=== PATIENT | male | born 1930 | race Caucasian/White ===

== ENCOUNTER → 2017-06-25 | Outpatient (CLI) | payer MEDICARE, OTHER ==
[~2017-06-25] MED LIST: ADVIL PM PO; ASPI81CH PO; ASPI81EC PO; FINA5 PO; Fish Oil300 MG PO; IBUP400 PO; LOSA25; MECL12.5 PO; MULTIVITAMIN PO; SIMV10 PO; SIMVASTATIN PO; TAMS.4ER PO; UBID100 PO; [UNRECOGNIZED DRUG - OTHER] PO
== END ==
LOC: LAB SHORT 12:00 → PLD 12:00
DX: D48.5 Neoplasm of uncertain behavior of skin (principal)
CPT/HCPCS: 88305

== ENCOUNTER → 2017-11-12 | Outpatient (CLI) | payer MEDICARE, OTHER | END | disposition home or self-care (01) | LOC: LAB SHORT 13:32 → PLD 13:32 | DX: D48.5 Neoplasm of uncertain behavior of skin (principal) | CPT/HCPCS: 88305 ==

== ENCOUNTER → 2017-11-24 | Outpatient (CLI) | payer MEDICARE, OTHER ==
[2017-11-24 09:45] LABS: BASOPHILS ABSOLUTE AUTO 0.04 K/mm3 (0.00-0.23); BASOPHILS PERCENT AUTO 0 % (0-2); EOSINOPHILS ABSOLUTE AUTO 0.01 K/mm3 (0.00-0.68); EOSINOPHILS PERCENT AUTO 0 % (0-6); Hematocrit 34.7 % (37.0-53.0); IMMATURE GRAN ABSOLUTE AUTO 0.23 K/mm3 (0.00-0.10); IMMATURE GRAN PERCENT AUTO 1 % (0-1); LYMPHOCYTES ABSOLUTE AUTO 1.37 K/mm3 (0.84-5.20); LYMPHOCYTES PERCENT AUTO 6 % (21-46); MONOCYTES ABSOLUTE AUTO 1.83 K/mm3 (0.16-1.47); MONOCYTES PERCENT AUTO 8 % (4-13); Mean Corpuscular HGB 32.5 pg (26.0-34.0); Mean Corpuscular HGB Conc 34.6 g/dL (31.5-36.5); Mean Corpuscular Volume 94 fL (80-100); Mean Platelet Volume 10.4 fL (9.1-12.4); NEUTROPHILS ABSOLUTE AUTO 18.29 K/mm3 (1.96-9.15); NEUTROPHILS PERCENT AUTO 84 % (41-73); Platelet Count 239 K/mm3 (150-400); RDW Coefficient Variation 13.5 % (11.7-14.2); Red Blood Cell Count 3.69 M/mm3 (4.30-5.90); White Blood Cell Count 21.77 K/mm3 (4.00-11.30)
[2017-11-24 09:53] LABS: Albumin, Blood 2.8 g/dL (3.4-5.0); Albumin/Globulin Ratio 0.7 (0.8-1.8); Bilirubin, Total 0.6 mg/dL (0.1-1.0); Bun/Creatinine Ratio 22.3 (12.0-20.0); Calcium, Blood 9.5 mg/dL (8.5-10.1); Creatinine, Blood 2.69 mg/dL (0.60-1.20); Globulin, Blood 4.3 g/dL (2.2-4.0); Potassium, Blood 4.7 mmol/L (3.5-5.5); Total Protein, Blood 7.1 g/dL (6.4-8.2)
[2017-11-24 10:20] LABS: Source, Urine Voided
[2017-11-24 10:39] LABS: Bacteria Mod /hpf; Granular Casts 0-2 /lpf (0); Mucus Mod (0-Heavy); Squamous Epithelial Cells Few /hpf (Few)
== END | disposition home or self-care (01) ==
LOC: LAB EV 09:38 → LAB SHORT 09:38
PROVIDERS: Physician Assistant Medical
DX: R10.84 Generalized abdominal pain (principal)
CPT/HCPCS: 80053; 81015; 83690; 85025

== ENCOUNTER → 2017-11-25 | Outpatient (CLI) | payer MEDICARE, OTHER ==
[2017-11-25 14:40] LABS: BASOPHILS ABSOLUTE AUTO 0.04 K/mm3 (0.00-0.23); BASOPHILS PERCENT AUTO 0 % (0-2); EOSINOPHILS ABSOLUTE AUTO 0.04 K/mm3 (0.00-0.68); EOSINOPHILS PERCENT AUTO 0 % (0-6); Hematocrit 36.8 % (37.0-53.0); Hemoglobin 12.2 g/dL (13.5-17.5); IMMATURE GRAN ABSOLUTE AUTO 0.14 K/mm3 (0.00-0.10); IMMATURE GRAN PERCENT AUTO 1 % (0-1); LYMPHOCYTES PERCENT AUTO 8 % (21-46); MONOCYTES ABSOLUTE AUTO 1.33 K/mm3 (0.16-1.47); MONOCYTES PERCENT AUTO 7 % (4-13); Mean Corpuscular HGB 31.5 pg (26.0-34.0); Mean Corpuscular HGB Conc 33.2 g/dL (31.5-36.5); Mean Corpuscular Volume 95 fL (80-100); Mean Platelet Volume 9.9 fL (9.1-12.4); NEUTROPHILS ABSOLUTE AUTO 16.06 K/mm3 (1.96-9.15); NEUTROPHILS PERCENT AUTO 84 % (41-73); Platelet Count 274 K/mm3 (150-400); RDW Coefficient Variation 13.6 % (11.7-14.2); RDW Standard Deviation 47.6 fL (35.1-46.3); Red Blood Cell Count 3.87 M/mm3 (4.30-5.90); White Blood Cell Count 19.11 K/mm3 (4.00-11.30)
== END | disposition home or self-care (01) ==
LOC: LAB SHORT 14:36 → LAB EV 14:36
PROVIDERS: Physician Assistant Medical
DX: N39.0 Urinary tract infection, site not specified (principal)
CPT/HCPCS: 85025

== ENCOUNTER 2019-01-08 09:37 | Day surgery (SDC) | payer MEDICARE, OTHER | END 2019-01-08 22:34 | disposition home or self-care (01) | LOC: CT 09:37 | DX: M89.8X8 Other specified disorders of bone, other site (principal); E78.5 Hyperlipidemia, unspecified; Z85.51 Personal history of malignant neoplasm of bladder; Z87.891 Personal history of nicotine dependence; Z79.82 Long term (current) use of aspirin; Z79.899 Other long term (current) drug therapy; Z88.5 Allergy status to narcotic agent | CPT/HCPCS: 20220; 77012; 88307 ==

== ENCOUNTER → 2019-02-09 | Outpatient (CLI) | payer MEDICARE, OTHER ==
[2019-02-09 10:58] LABS: Source, Urine Clean Catch
[2019-02-09 12:58] LABS: Appearance, Urine Clear (Clear); Color, Urine Yellow (P-Yellow)
[2019-02-09 12:59] LABS: Bacteria Few /hpf; Bilirubin, Urine Neg (Neg); Blood, Urine Trace (Neg); Glucose Qualitative, Urine Neg (Normal); Ketones, Urine Neg (Neg); Leukocyte Esterase, Urine Trace (Neg); Nitrite, Urine Neg (Neg); Protein, Urine Neg (Neg); Red Blood Cells, Urine 0-2 /hpf (0-2); Squamous Epithelial Cells Rare /hpf (Few); Urobilinogen, Urine NORM (Normal)
[2019-02-09 15:16] LABS: Creatinine, Urine Random 66.5 mg/dL (27.00-270.00); Protein, Urine Random 5.9 mg/dL (0.0-11.9)
== END | disposition home or self-care (01) ==
LOC: LAB EV 09:30
PROVIDERS: Internal Medicine
DX: N18.4 Chronic kidney disease, stage 4 (severe) (principal)
CPT/HCPCS: 81001; 82570; 84156

== ENCOUNTER 2020-04-18 22:17 | Inpatient (IN) | payer OTHER, MEDICARE ==
[~2020-04-18] VITALS: Ht 167.6 cm; Wt 66.2 kg
[~2020-04-18 22:17] MED LIST changes: +FISH OIL PO; -Fish Oil300 MG PO; +MULTI-VITAMIN1 EAC2 PO; -MULTIVITAMIN PO
[2020-04-18 22:56] LABS: BASOPHILS ABSOLUTE AUTO 0.01 K/mm3 (0.00-0.23); BASOPHILS PERCENT AUTO 0 % (0-2); EOSINOPHILS PERCENT AUTO 0 % (0-6); Hemoglobin 13.7 g/dL (13.5-17.5); IMMATURE GRAN ABSOLUTE AUTO 0.04 K/mm3 (0.00-0.10); IMMATURE GRAN PERCENT AUTO 1 % (0-1); LYMPHOCYTES ABSOLUTE AUTO 0.44 K/mm3 (0.84-5.20); LYMPHOCYTES PERCENT AUTO 5 % (21-46); MONOCYTES ABSOLUTE AUTO 0.91 K/mm3 (0.16-1.47); MONOCYTES PERCENT AUTO 10 % (4-13); Mean Corpuscular HGB 30.7 pg (26.0-34.0); Mean Corpuscular HGB Conc 34.3 g/dL (31.5-36.5); Mean Corpuscular Volume 90 fL (80-100); NEUTROPHILS ABSOLUTE AUTO 7.35 K/mm3 (1.96-9.15); NEUTROPHILS PERCENT AUTO 84 % (41-73); Platelet Count 161 K/mm3 (150-400); RDW Coefficient Variation 13.2 % (11.7-14.2); RDW Standard Deviation 43.7 fL (35.1-46.3); Red Blood Cell Count 4.46 M/mm3 (4.30-5.90); White Blood Cell Count 8.75 K/mm3 (4.00-11.30)
[2020-04-18 23:12] LABS: Albumin, Blood 2.9 g/dL (3.4-5.0); Albumin/Globulin Ratio 0.8 (0.8-1.8); Bilirubin, Total 0.3 mg/dL (0.1-1.0); Bun/Creatinine Ratio 19.8 (12.0-20.0); Calcium, Blood 8.6 mg/dL (8.5-10.1); Creatinine, Blood 1.67 mg/dL (0.60-1.20); Globulin, Blood 3.8 g/dL (2.2-4.0); Potassium, Blood 4.1 mmol/L (3.5-5.5); Total Protein, Blood 6.7 g/dL (6.4-8.2); Troponin I 0.04 ng/mL (0.000-0.040)
[2020-04-19 02:54] LABS: Source, Urine Catheter
[2020-04-19 02:59] LABS: Bilirubin, Urine Neg (Neg); Blood, Urine 4+ (Neg); Glucose Qualitative, Urine Neg (Neg); Ketones, Urine Neg (Neg); Leukocyte Esterase, Urine Neg (Neg); Nitrite, Urine Neg (Neg); Protein, Urine 3+ (Neg); Specific Gravity, Urine 1.025 (1.003-1.022); Urobilinogen, Urine NORM (Normal)
[2020-04-19 03:00] LABS: Appearance, Urine Clear (Clear); Color, Urine Yellow (P-Yellow)
[2020-04-19 03:05] LABS: White Blood Cells, Urine 0-2 /hpf (0-5)
[2020-04-19 03:07] LABS: Amorphous Mod (0-Heavy); Bacteria Few /hpf; Mucus Light (0-Heavy); Squamous Epithelial Cells Few /hpf (Few)
[2020-04-19 04:59] LABS: BASOPHILS ABSOLUTE AUTO 0.01 K/mm3 (0.00-0.23); BASOPHILS PERCENT AUTO 0 % (0-2); EOSINOPHILS ABSOLUTE AUTO 0.01 K/mm3 (0.00-0.68); EOSINOPHILS PERCENT AUTO 0 % (0-6); Hematocrit 40.5 % (37.0-53.0); Hemoglobin 13.5 g/dL (13.5-17.5); IMMATURE GRAN ABSOLUTE AUTO 0.06 K/mm3 (0.00-0.10); IMMATURE GRAN PERCENT AUTO 1 % (0-1); LYMPHOCYTES ABSOLUTE AUTO 0.55 K/mm3 (0.84-5.20); LYMPHOCYTES PERCENT AUTO 7 % (21-46); MONOCYTES ABSOLUTE AUTO 0.29 K/mm3 (0.16-1.47); MONOCYTES PERCENT AUTO 4 % (4-13); Mean Corpuscular HGB 30.5 pg (26.0-34.0); Mean Corpuscular HGB Conc 33.3 g/dL (31.5-36.5); Mean Corpuscular Volume 92 fL (80-100); Mean Platelet Volume 9.9 fL (9.1-12.4); NEUTROPHILS ABSOLUTE AUTO 6.47 K/mm3 (1.96-9.15); NEUTROPHILS PERCENT AUTO 88 % (41-73); NRBC ABSOLUTE 0.02 K/mm3 (0.00-0.02); NRBC Auto 0.3 /100 WBC (0.0-0.2); Platelet Count 122 K/mm3 (150-400); RDW Coefficient Variation 13.2 % (11.7-14.2); RDW Standard Deviation 45.1 fL (35.1-46.3); Red Blood Cell Count 4.42 M/mm3 (4.30-5.90); White Blood Cell Count 7.39 K/mm3 (4.00-11.30)
--- NOTE | 2020-04-19 04:59 | NUR ---
GRAPHIC DESIGN SPECIALIST SUMMARY PT ARRIVED TO FLOOR FROM ED WITH UNLABORED BREATHING AND O2 SATS IN THE HIGH 90'S SO HE WAS PLACED ON HI FLOW O2 W O2 SATS 92-95% ALL NIGHT. PT DENIED ANY PAIN OR NAUSEA THIS SHIFT. PT HAS BEEN AFEBRILE. PT REPORTED THAT HE SELF CATHETERS HIMSELF AT HOME SO A BHAGAT CATHETER WAS PLACED PER ORDER. PT REPORTS THAT HE IS TOO WEAK TO AMBULATE AND THAT HE HAS FALLEN MULTIPLE TIMES DUE TO INCREASING WEAKNESS SINCE BEING DX W COVID 19. WILL REPORT TO DARREN RN, WCRIO.
[2020-04-19 05:12] LABS: Albumin, Blood 2.7 g/dL (3.4-5.0); Albumin/Globulin Ratio 0.8 (0.8-1.8); Bilirubin, Total 0.5 mg/dL (0.1-1.0); Bun/Creatinine Ratio 21.6 (12.0-20.0); Calcium, Blood 8.5 mg/dL (8.5-10.1); Creatinine, Blood 1.71 mg/dL (0.60-1.20); Globulin, Blood 3.5 g/dL (2.2-4.0); Potassium, Blood 4.2 mmol/L (3.5-5.5); Total Protein, Blood 6.2 g/dL (6.4-8.2)
--- NOTE | 2020-04-19 09:37 | NUR ---
ASSUMED CARE, MORNING UPDATE PT WAS SLEEPING AT THE TIME OF SHIFT CHANGE. PT SOON WOKE WHEN TIME FOR MORNING MEDICATIONS AND VS. VS STABLE, PT ON 5L HIGH FLOW NC TO MAINTAIN SATS ABOVE 92%. BREATHING IS UNLABORED, PT DENIES CHEST PAIN, PRESSURE OR DISCOMFORT. PT DENIES SOB. BHAGAT IN PLACE AND DRAINING. PT TOOK MORNING MEDICATIONS ORDERED AND HIS DIET WAS CHANGED SO HE COULD HAVE BREAKFAST. PT IS RESTING IN HIS ROOM AT THIS TIME
--- NOTE | 2020-04-19 13:03 | NUR ---
Echocardiogram completed.
--- NOTE | 2020-04-19 17:33 | NUR ---
SHIFT SUMMARY PT HAS BEEN SLEEPING MOST OF THE DAY. PT WAS ABLE TO GET UP TO THE BSC FOR A BOWEL MOVEMENT THIS MORNING WITH 1 PERSON ASSISTANCE. PT HAS MAINTAINED SATS ABOVE 92% ON 5L O2 VIA HIGH FLOW NC. VS STABLE. PT ABLE TO INDEPENDENTLY ROTATE AND REPOSITION HIMSELF. PT HAS BHAGAT IN PLACE THAT IS DRAINING WELL. PT DENIES PAIN OR DISCOMFORT. PT IS RESTING IN BED AT THIS TIME
--- NOTE | 2020-04-20 00:53 | NUR ---
UPDATE PT A&O X4; VSS; O2 SATS >93 ON 5L HIGH FLOW; PT C/O CHRONIC HIP PAIN FROM A PREVIOUS FALL AND TROUBLE SLEEPING; DR. CARROLL NOTIFIED AND NEW ORDERS GIVEN, REFER TO EMAR; REPOSITIONING AND HEAT PAD OFFERED; CALL LIGHT IN REACH; BED IN LOWEST POSITION.
--- NOTE | 2020-04-20 05:43 | NUR ---
SHIFT SUMMARY PT A&O X 4; PLEASANT & COMPLIANT W/ CARE; VSS; SINUS DIONICIO NOTED ON TELE; HR 57; O2 SATS >93 ON 5L HIGH FLOW; PT DENIES SOB; DENIES LOSS OF TASTE/SMELL; BHAGAT PATENT & DRAINING YELLOW; C/O HIP AND FOOT PAIN; ADMINISTERED FENTANYL X1 THIS SHIFT; HEAT PAD OFFERED; NO ACUTE CHANGES THIS SHIFT; CALL LIGHT IN REACH; BED IN LOWEST POSITION; WILL CONTINUE TO MONITOR CLOSELY UNTIL HAND OFF TO DAY SHIFT RN.
--- NOTE | 2020-04-20 08:18 | NUR ---
ASSUMED CARE FROM NOC RN PT WAS SLEEPING DURING SHIFT CHANGE, SATS ABOVE 92% ON 5L O2 VIA HIGH FLOW NC. PT WAS ABLE TO TAKE MORNING MEDICATIONS, VS STABLE, PT DENIES CHEST PAIN, PRESSURE OR DISCOMFORT. PT IS SLIGHTLY SOB UPON EXERTION BUT OTHERWISE IS COMFORTABLE. PT IS CURRENTLY IN BED WATCHING TV AND HAVING BREAKFAST
--- NOTE | 2020-04-20 14:21 | NUR ---
ADMIT: 04/19/20 DISCHARGE: DX: covid 19 CC: [email or web address] DEANA CALL: RESIDENCE: home CAREGIVER: self JAZMINE OSHEA (CHILD) DX: htn, ckd 3, covid 19, hs of Bladder Ca, peripheral nerve disease, see list DME: [facility] 01/06/18 Still use? CCM:no records HOME HEALTH: no records SUMMARY: Admit 04/19/20 04/20/20- per chart review with Dr. Ng, pt is on droplet precautions due to positive COVID test. Pt's need for O2- 5L. No est ETA for d/c at this time. -anne marie
--- NOTE | 2020-04-20 15:00 | NUR ---
FAMILY PT'S DAUGHTER ARRIVED AT THE HOSPITAL AND DROPPED A FEW PERSONAL ITEMS OFF FOR HIM. HIS DAUGHTER, JAZMINE, EXPRESSED CONCERN ABOUT THE POSSIBILITY OF HIM STILL SPREADING COVID UPON DISCHARGE. DAUGHTER IS WORRIED THAT HE MAY NEED SOME HELP AT HOME WHEN HE IS WEAK AND STILL RECOVERING BUT DOESN'T WANT HIM TO HAVE THE ABILITY TO PASS THE VIRUS TO OTHERS. I EXPRESSED TO HIS DAUGHTER THAT AT THIS POINT I DO NOT HAVE A DISCHARGE DATE FOR HIM, I WOULD PASS ALONG HER CONCERNS VIA NOTE AND SHIFT REPORT SO THAT IT COULD BE FURTHER ADDRESSED AT TIME OF DISCHARGE BASED ON HIS HEALTH STATUS
--- NOTE | 2020-04-20 17:46 | NUR ---
SHIFT SUMMARY PT HAS BEEN ABLE TO WORK WITH PT/OT TODAY, PT HAS WALKED AROUND THE ROOM SEVERAL TIMES WITH SBA AND THE WALKER. PT HAS SPENT THE MAJORITY OF THE DAY IN THE CHAIR. PT DID REPORT SOME BACK PAIN THIS AFTERNOON AND WAS GIVEN TYLENOL AND A HEATING PAD FOR HIS BACK AT THAT TIME. VS STABLE, PT ON 5L O2 VIA HIGH FLOW NC. PT SITTING IN THE CHAIR HAVING DINNER AT THIS TIME
[2020-04-21 04:47] LABS: BASOPHILS ABSOLUTE AUTO 0.01 K/mm3 (0.00-0.23); BASOPHILS PERCENT AUTO 0 % (0-2); EOSINOPHILS PERCENT AUTO 0 % (0-6); Hematocrit 39.5 % (37.0-53.0); Hemoglobin 13.4 g/dL (13.5-17.5); IMMATURE GRAN ABSOLUTE AUTO 0.04 K/mm3 (0.00-0.10); IMMATURE GRAN PERCENT AUTO 1 % (0-1); LYMPHOCYTES ABSOLUTE AUTO 0.99 K/mm3 (0.84-5.20); LYMPHOCYTES PERCENT AUTO 12 % (21-46); MONOCYTES ABSOLUTE AUTO 0.78 K/mm3 (0.16-1.47); MONOCYTES PERCENT AUTO 9 % (4-13); Mean Corpuscular HGB 30.7 pg (26.0-34.0); Mean Corpuscular HGB Conc 33.9 g/dL (31.5-36.5); Mean Corpuscular Volume 90 fL (80-100); Mean Platelet Volume 11.1 fL (9.1-12.4); NEUTROPHILS ABSOLUTE AUTO 6.59 K/mm3 (1.96-9.15); NEUTROPHILS PERCENT AUTO 78 % (41-73); Platelet Count 151 K/mm3 (150-400); RDW Coefficient Variation 13.2 % (11.7-14.2); RDW Standard Deviation 44.6 fL (35.1-46.3); Red Blood Cell Count 4.37 M/mm3 (4.30-5.90); White Blood Cell Count 8.41 K/mm3 (4.00-11.30)
[2020-04-21 05:54] LABS: C-REACTIVE PROTEIN, EXT RANGE 2.03 mg/dL (0.000-0.300); Magnesium, Blood 2.3 mg/dL (1.6-2.4)
[2020-04-21 05:55] LABS: Albumin, Blood 2.9 g/dL (3.4-5.0); Bilirubin, Total 0.2 mg/dL (0.1-1.0); Bun/Creatinine Ratio 45.6 (12.0-20.0); Calcium, Blood 8.5 mg/dL (8.5-10.1); Creatinine, Blood 1.58 mg/dL (0.60-1.20); Phosphorus, Blood 3.8 mg/dL (2.5-4.9); Potassium, Blood 4.6 mmol/L (3.5-5.5); Total Protein, Blood 5.9 g/dL (6.4-8.2)
--- NOTE | 2020-04-21 06:29 | NUR ---
SHIFT SUMMARY PT A&O X4; PLEASANT & COMPLIANT W/ CARE; DENIES CHEST PAIN; VSS; SINUS DIONICIO NOTED ON TELE; O2 SATS >93 ON 5L HIGH FLOW; SOB NOTED AT TIMES W/ REPOSITIONING; C/O BACK PAIN; FENTANYL ADMINISTERED 1X; HEAT PAD RESET UP FOR PT; PT SLEPT SEVERAL HOURS IN BETWEEN INTERVENTIONS; NO DISTRESS NOTED; CALL LIGHT IN REACH; BED IN LOWEST POSITION; WILL CONTINUE TO MONITOR CLOSELY UNTIL HAND OFF TO DAY SHIFT RN.
--- NOTE | 2020-04-21 15:40 | NUR ---
04/21/20- PER CHART REVIEW, PT AND OT HAVE SEEN PT AND RECOMMENDING POTENTIAL HOME HEALTH. PT HAS GOOD FAMILY SUPPORT AT HIS HOME AT [place]/C. -[facility]
--- NOTE | 2020-04-21 17:16 | NUR ---
SHIFT SUMMARY: PT CONTINUES A&OX4 T/OUT SHIFT, REPORTS IMPROVEMENT OF SOB/SYMPTOMS TODAY WHEN COMPARED TO YESTERDAY. PT MAINTAINED O2 SATS >93% AT REST AND >90% WHILE AMBULATING, ON 6 L/MIN VIA HIFLO HUMIDIFIED AIR. MONITOR SHOWS SINUS DIONICIO/RHYTHM. PT MEDICATED PER EMAR FOR C/O UPPER/MID BACK PAIN, WAS ABLE TO PARTICIPATE WITH OT/PT TODAY. INDWELLING BHAGAT CONTINUES TO DRAIN CLEAR YELLOW URINE. PT'S DAUGHTER UPDATED VIA PHONE CALL. WILL CONTINUE TO MONITOR AND TREAT ACCORDINGLY UNTIL CHANGE OF SHIFT.
--- NOTE | 2020-04-22 04:35 | NUR ---
SHIFT SUMMARY PT IS ALERT AND ORIENTED, HE HAD A QUIET UNEVENTFUL NIGHT WITH SOME REST. O2 WAS TITRATED DOWN TO 3 LPM VIA NC WITH 02 SATS >95%. PT REPORTED NO SOB. VITALS STABLE, HR 50'S SINUS RHYTHM. BP 140'S SYSTOLIC. PT REPORTED PAIN IN HIS LEFT LEG, PRN FENTANYL WAS GIVEN WITH RELIEF OF PAIN. PT O2 DEMAND HAS IMPROVED T/O THE NIGHT. PT IS AWAKE WATCHING TV AND STATES DOING WELL. PT IMPROVING.
--- NOTE | 2020-04-22 17:44 | NUR ---
PT SUMMARY: NO ACUTE CHANGE FOR THE SHIFT, PT IS NOW ON ROOMAIR SATS 94%, PT DENIES CHEST PAIN/SOB/, VITALS STABLE, UP IN THE CHAIR FOR MEALS, WORKED WITH PT/OT WITH NO ISSUES. DAY 4 OF REMDESIVIR, PT FOR POSS DC IN AM IF STABLE. NEW ORDER FOR NS AT 125MLS X2 BAGS CURRENTLY RUNNING. NO ISSUES ENCOUNTERED FOR THE SHIFT, PT CALLS APPROPRIATELY, ABLE TO MAKE NEEDS KNOWN, WILL REPORT TO ONCOMING SHIFT.
--- NOTE | 2020-04-23 04:22 | NUR ---
SHIFT SUMMARY PT HAS SHOWN IMPROVEMENT FROM LAST NOC SHIFT. PT NO LONGER ON O2. O2 SATS >90% ON ROOM AIR. PT DENIES ANY SOB. VITALS STABLE. BP 130-140'S SYSTOLIC. HR 50-60'S. PT IS ALERT AND ORIENTED, AND COOPERATIVE WITH CARE. PAIN WAS WELL CONTROLLED WITH PRN MEDICATIONS. PT REPORTED BEING COMFORTABLE AND WAS ABLE TO GET SOME REST. PT HAD A QUIET UNEVENTFUL NIGHT.
[2020-04-23] MEDS ORDERED: Zithromax500 MG PO (12:48)
[2020-04-23] MEDS ORDERED: GABA300 PO (12:48)
[2020-04-23] MEDS ORDERED: VITAMIN D PO (12:49)
[2020-04-23] MEDS ORDERED: ZINC220 PO (12:49)
[2020-04-23] MEDS ORDERED: CEFP200 PO (12:49)
--- NOTE | 2020-04-23 15:15 | NUR ---
PT DISCHARGED TO HOME TODAY WITH DISCHARGE ORDERS. NEW MED PRESCRIPTION SENT TO [facility]. HOME O2 EVAL DONE PRIOR TO DISCHARGE PT IS REQUIRING 1L OF O2 WITH EXERTION ORDER SENT TO [facility] SO THE WALKER. PORTABLE O2 AND WALKER DELIVERED PRIOR TO DISCHARGE. DISCHARGE MEDICATIONS AND INSTRUCTIONS DISCLOSED WITH PT AND DAUGHTER AT BEDSIDE, BOTH VERBALIZED UNDERSTANDING. PRINTED INFO PROVIDED REGARDING COVID AND NEW MEDICATIONS. IV AND CATHETER PULLED, PT STRAIGHT CATH AT HOME. ALL BELONGING SENT WITH PT, DAUGHTER SET UP TRANSPORTATION FOR PT THROUGH [facility], PT WAS PICKED UP VIA GURNEY. PT TRANSPORTED TO HOME BY 1500.
== END 2020-04-23 15:11 | disposition home or self-care (01) | DRG 871 ==
LOC: ER 22:17 → ERHOLD 22:18 → PCU 22:18
PROVIDERS: Emergency Medicine; Hospitalist; ADMIT Internal Medicine
PROC: XW033E5 Introduction of Remdesivir Anti-infective into Peripheral Vein, Percutaneous Approach, New Technology Group 5 (ICD-10-PCS; principal; 2020-04-19)
PROC: XW033E5 Introduction of Remdesivir Anti-infective into Peripheral Vein, Percutaneous Approach, New Technology Group 5 (ICD-10-PCS; 2020-04-20)
PROC: XW033E5 Introduction of Remdesivir Anti-infective into Peripheral Vein, Percutaneous Approach, New Technology Group 5 (ICD-10-PCS; 2020-04-21)
PROC: XW033E5 Introduction of Remdesivir Anti-infective into Peripheral Vein, Percutaneous Approach, New Technology Group 5 (ICD-10-PCS; 2020-04-22)
DX: A41.89 Other specified sepsis (principal); U07.1 COVID-19; J96.01 Acute respiratory failure with hypoxia; J12.82 Pneumonia due to coronavirus disease 2019; N18.30 Chronic kidney disease, stage 3 unspecified; I12.9 Hypertensive chronic kidney disease with stage 1 through stage 4 chronic kidney disease, or unspecified chronic kidney disease; Z87.891 Personal history of nicotine dependence; N40.0 Benign prostatic hyperplasia without lower urinary tract symptoms; Z79.82 Long term (current) use of aspirin; Z66 Do not resuscitate; D69.6 Thrombocytopenia, unspecified; E88.09 Other disorders of plasma-protein metabolism, not elsewhere classified; G57.91 Unspecified mononeuropathy of right lower limb
CPT/HCPCS: 36415; 71045; 80053; 81001; 82728; 83615; 83735; 83880; 84100; 84484; 85025; 85379; 86140; 93005; 93010; 93306; 94760; 94761; 94762; 96374; 97110; 97116; 97162; 97166; 97530; 97535; 99285-25; A9270; J0696; J1100; J1650; J3010; J7030; J7050